=== PATIENT | female | born 1990 | race Caucasian/White ===

== ENCOUNTER 2017-11-19 13:00 | Emergency (ER) | payer OTHER ==
[~2017-11-19] VITALS: Ht 162.6 cm; Wt 99.7 kg
[2017-11-19 13:52] LABS: HEMATOCRIT 37.9 % (36.0-46.0); HEMOGLOBIN 13.1 G/DL (11.9-15.5); MCH 30.5 PG (29.0-34.0); MCHC 34.6 G/DL (30.0-36.0); MCV 88.3 FL (83-99); PLATELET COUNT 284 K/uL (156-360); RBC DIS.WIDTH-CV 11.8 % (11.8-14.6); RED BLOOD COUNT 4.29 M/uL (3.80-5.20); WHITE BLOOD COUNT 8.4 K/uL (4.1-10.2)
[2017-11-19 14:03] LABS: ALBUMIN 4.6 g/dL (3.2-4.8); CHLORIDE 102 mEq/L (99-109); SODIUM 137 mEq/L (136-147)
[2017-11-19 14:06] LABS: GLUCOSE 91 mg/dL (70-99); TOTAL PROTEIN 8.3 g/dL (6.4-8.3)
[2017-11-19 14:07] LABS: TOTAL BILIRUBIN 0.9 mg/dL (0.0-1.0)
[2017-11-19 14:09] LABS: ALKALINE PHOSPHATASE 112 IU/L (3-129); CREATININE 0.8 mg/dL (0.6-1.3); GFR ESTIMATE (CALCULATED) > 59 mL/min/
[2017-11-19 14:10] LABS: UREA NITROGEN (BUN) 8 mg/dL (9-23)
[2017-11-19 14:11] LABS: AST (GOT) 38 IU/L (2-34); DIRECT BILIRUBIN 0.4 mg/dL (0.0-0.3)
[2017-11-19 14:12] LABS: ALT (GPT) 50 IU/L (3-49)
[2017-11-19 14:13] LABS: LIPASE 23 U/L (1.0-51.0)
[2017-11-19 14:24] LABS: QUANTITATIVE HCG < 4.0 MIU/ML
[2017-11-19] MEDS ORDERED: FLAGYL500 MG PO (15:46)
[2017-11-19] MEDS ORDERED: CIPRO500 MG PO (15:46)
[2017-11-19 16:05] LABS: APPEARANCE CLOUDY ((CLEAR)); BILIRUBIN NEGATIVE; BLOOD NEGATIVE; COLOR AMBER ((YELLOW)); GLUCOSE (STRIP) NEGATIVE; KETONES 80; LEUKOCYTES SMALL; NITRITE NEGATIVE; PROTEIN (STRIP) 100; SPECIFIC GRAVITY 1.036 (1.000-1.030)
[2017-11-19 16:20] LABS: EPITHELIAL CELLS 2+ /HPF; MUCUS NONE SEEN /LPF; RED BLOOD CELLS NONE SEEN /HPF (0-5)
[2017-11-19 16:21] LABS: AMORPHOUS URATES CRYSTALS 2+; BACTERIA 1+ /HPF
[2017-11-19 17:15] VITALS: BP 125/77
== END 2017-11-19 17:17 | disposition home or self-care (01) ==
LOC: EME 13:00
PROVIDERS: Emergency Medicine
DX: K57.32 Diverticulitis of large intestine without perforation or abscess without bleeding (principal); N39.0 Urinary tract infection, site not specified; F32.9 Major depressive disorder, single episode, unspecified; F41.9 Anxiety disorder, unspecified
CPT/HCPCS: 74176; 80048; 80076; 81003; 83690; 84702; 85027; 87086; 99281; 99284